=== PATIENT | female | born 1940 | race Two or more races ===

== ENCOUNTER 2024-07-08 14:46 | Emergency (ER) | payer BC, MEDICAID ==
[~2024-07-08] VITALS: Ht 154.9 cm; Wt 75.1 kg
[2024-07-08 16:00] VITALS: BP 153/76; PULSE 77; RESP 16; TEMP 98.6; O2SAT 96
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
--- NOTE | 2024-07-08 16:50 | DVH ---
INDICATION: trauma COMPARISON: None TECHNIQUE: 3 views of the cervical spine were obtained. FINDINGS: Reversal of the cervical spine curvature. The predental space is normal. Moderate multilevel degenerative disc disease of the cervical spine. No acute fracture, vertebral compression deformity or aggressive osseous lesions. The imaged lung apices are unremarkable. IMPRESSION: No acute fracture.
[2024-07-08] MEDS ORDERED: CYCL-839 PO (17:28)
[2024-07-08] MEDS ORDERED: NAP500T PO (17:28)
== END 2024-07-08 17:38 | disposition home or self-care (01) ==
LOC: EDSEX 14:46 → ER 14:46
DX: S40.011A Contusion of right shoulder, initial encounter (principal); M62.838 Other muscle spasm; M54.50 Low back pain, unspecified; M79.604 Pain in right leg; I10 Essential (primary) hypertension; E78.5 Hyperlipidemia, unspecified; Z88.5 Allergy status to narcotic agent; V89.2XXA Person injured in unspecified motor-vehicle accident, traffic, initial encounter; Y93.I9 Activity, other involving external motion; Y92.488 Other paved roadways as the place of occurrence of the external cause; Y99.8 Other external cause status
CPT/HCPCS: 72040